=== PATIENT | male | born 1985 | race Caucasian/White ===

== ENCOUNTER 2023-03-21 13:52 | Outpatient (CLI) | payer BC | END 2023-03-21 13:53 | disposition home or self-care (01) | LOC: CSHWCC 13:52 | PROVIDERS: ATTEND Nurse Practitioner Family | DX: T81.89XD Other complications of procedures, not elsewhere classified, subsequent encounter (principal) | CPT/HCPCS: 11102; 88307; 99203; G0463 ==

== ENCOUNTER 2023-04-20 14:17 | Outpatient (CLI) | payer BC | END 2023-04-20 14:18 | disposition home or self-care (01) | LOC: CSHWCC 14:17 | PROVIDERS: ATTEND Physician Assistant | DX: T81.89XD Other complications of procedures, not elsewhere classified, subsequent encounter (principal) | CPT/HCPCS: 87070; 87077; 87186; 87205; 97602 ==

== ENCOUNTER 2023-04-27 13:19 | Outpatient (CLI) | payer BC | END 2023-04-27 13:20 | disposition home or self-care (01) | LOC: CSHWCC 13:19 | PROVIDERS: ATTEND Preventive Medicine Undersea and Hyperbaric Medicine | DX: T81.89XD Other complications of procedures, not elsewhere classified, subsequent encounter (principal) | CPT/HCPCS: 99213; G0463 ==

== ENCOUNTER 2023-05-11 14:32 | Outpatient (CLI) | payer BC | END 2023-05-11 14:33 | disposition home or self-care (01) | LOC: CSHWCC 14:32 | PROVIDERS: ATTEND Physician Assistant | DX: T81.32XD Disruption of internal operation (surgical) wound, not elsewhere classified, subsequent encounter (principal) | CPT/HCPCS: 97602 ==

== ENCOUNTER 2023-05-30 14:57 | Outpatient (CLI) | payer BC | END 2023-05-30 14:58 | disposition home or self-care (01) | LOC: CSHWCC 14:57 | PROVIDERS: ATTEND Physician Assistant | DX: T81.89XD Other complications of procedures, not elsewhere classified, subsequent encounter (principal) | CPT/HCPCS: 99214; G0463 ==